=== PATIENT | male | born 1975 | race Caucasian/White ===

== ENCOUNTER 2017-02-15 15:16 | Inpatient (IN) | payer MEDICARE ==
[~2017-02-15] VITALS: Ht 182.9 cm; Wt 102.5 kg
[2017-02-15 17:08] LABS: HEMOGLOBIN 12.6 gm/dl (14.0-17.5); RED BLOOD COUNT 4.51 M/UL (4.20-5.50); WHITE BLOOD COUNT 24.8 K/UL (4.5-11.0)
[2017-02-15 17:22] LABS: BUN/CREATININE RATIO 14 (0-10)
[2017-02-16 04:31] LABS: HEMOGLOBIN 11.8 gm/dl (14.0-17.5); RED BLOOD COUNT 4.15 M/UL (4.20-5.50); WHITE BLOOD COUNT 22.5 K/UL (4.5-11.0)
[2017-02-16 04:46] LABS: BUN/CREATININE RATIO 17 (0-10)
[2017-02-17 06:28] LABS: HEMOGLOBIN 11.1 gm/dl (14.0-17.5); RED BLOOD COUNT 3.93 M/UL (4.20-5.50)
[2017-02-17 06:33] LABS: WHITE BLOOD COUNT 14.1 K/UL (4.5-11.0)
[2017-02-17 06:44] LABS: BUN/CREATININE RATIO 19 (0-10)
[2017-02-19 06:42] LABS: HEMOGLOBIN 12.2 gm/dl (14.0-17.5); RED BLOOD COUNT 4.32 M/UL (4.20-5.50); WHITE BLOOD COUNT 13.3 K/UL (4.5-11.0)
[2017-02-19] MEDS ORDERED: PERCOCET 5-3251 EACH PO (17:49)
[2017-02-19] MEDS ORDERED: ZYVOX600 MG PO (17:50)
== END 2017-02-19 17:57 | disposition home or self-care (01) | DRG 580 ==
LOC: ER1 15:16 → M/S 18:00 → ZEROF 18:00 → M/S 21:45
PROVIDERS: Emergency Medicine; Orthopaedic Surgery; ADMIT Family Medicine
PROC: 0JBK0ZZ Excision of Left Hand Subcutaneous Tissue and Fascia, Open Approach (ICD-10-PCS; 2017-02-16)
PROC: 0J9K3ZX Drainage of Left Hand Subcutaneous Tissue and Fascia, Percutaneous Approach, Diagnostic (ICD-10-PCS; principal; 2017-02-16 20:00)
DX: L02.512 Cutaneous abscess of left hand (principal); I96 Gangrene, not elsewhere classified; D72.829 Elevated white blood cell count, unspecified; F17.210 Nicotine dependence, cigarettes, uncomplicated; Z86.14 Personal history of Methicillin resistant Staphylococcus aureus infection; Z98.890 Other specified postprocedural states; Z82.49 Family history of ischemic heart disease and other diseases of the circulatory system; Z83.3 Family history of diabetes mellitus; L04.8 Acute lymphadenitis of other sites; F12.90 Cannabis use, unspecified, uncomplicated; F19.90 Other psychoactive substance use, unspecified, uncomplicated; Z79.899 Other long term (current) drug therapy
CPT/HCPCS: 36415; 80048; 80307; 85025; 85027; 86140; 87040; 87070; 87077; 87186; 96365; 96375; 96376; 99284; J1885; J1956; J2250; J2405; J2543; J3010; J3370; J7030; J7050; J7070; J7120